=== PATIENT | male | born 2000 | race Caucasian/White ===

== ENCOUNTER 2018-08-28 16:51 | Emergency (ER) | payer SELFPAY ==
[~2018-08-28] VITALS: Ht 182.9 cm; Wt 127.0 kg
[2018-08-28 17:08] VITALS: BP 150/86
[2018-08-28] MEDS ORDERED: ONDANSETRON ODT 4 MG TAB.RAPDIS. PO ONE (17:15)
[2018-08-28] MEDS ORDERED: HYDROcodone/APAP 10/325 1 TAB TABLET PO ONE ×2 (17:15→17:30)
[2018-08-28] MEDS ORDERED: LIDOCAINE 1% PF 2 ML VIAL. INJ ONE (17:15)
[2018-08-28] MEDS ORDERED: CEPHALEXIN 250 MG CAPSULE. PO ONE (18:15)
[2018-08-28] MEDS ORDERED: HYDR-3164 PO (18:34)
--- NOTE | 2018-08-28 18:34 | PHYS DOC ---
Past Medical History Past Medical History: No Pertinent History (RAMSES RAMIREZ) Past Surgical History: Appendectomy (RAMSES RAMIREZ) Alcohol Use: None Drug Use: None (RAMSES RAMIREZ) Adult General Chief Complaint Chief Complaint: HAND PROBLEM HPI HPI Patient is a 18 year old M who was angry today and punched a table. He states that he was upset over some people being laid off at work and he was getting out his frustration. He has had a prior boxers fracture in this same hand. He is R hand dominant. (RAMSES RAMIREZ) Review of Systems Review of Systems Constitutional: Denies fever or chills Respiratory: Denies cough or shortness of breath Cardiovascular: Denies chest pain GI: Denies abdominal pain, nausea, vomiting, bloody stools or diarrhea : Denies dysuria or hematuria Musculoskeletal: Denies back pain. Reports R hand pain Integument: Denies rash or skin lesions Neurologic: Denies headache, focal weakness or sensory changes All other systems were reviewed and found to be within normal limits, except as documented in this note. (RAMSES RAMIREZ) Current Medications Current Medications Current Medications Medications (Trade) Dose Ordered Sig/Ashwini Start Time Stop Time Status Last Admin Dose Admin Acetaminophen/ Hydrocodone Bitart (Lortab 10/325) 1 tab 1X ONCE 08/28/18 17:30 08/28/18 17:59 DC 08/28/18 17:52 1 TAB Cephalexin HCl (Keflex) 500 mg 1X ONCE 08/28/18 18:15 08/28/18 18:16 Cancel Lidocaine HCl (Xylocaine-Mpf 1% 2ml Vial) 10 ml 1X ONCE 08/28/18 17:15 08/28/18 17:16 UNV Ondansetron HCl (Zofran Odt) 4 mg 1X ONCE 08/28/18 17:15 08/28/18 17:16 UNV (ONELIA CHARLTON DO) Allergies Allergies Allergies Coded Allergies Type Severity Reaction Last Updated Verified No Known Drug Allergies 08/28/18 No (ONELIA CHARLTON DO) Physical Exam Physical Exam Constitutional: Well developed, well nourished, no acute distress, non-toxic appearance. HENT: Normocephalic, atraumatic, bilateral external ears normal, oropharynx moist. Sinus tenderness, clear nasal discharge. Eyes: PERRLA, EOMI, conjunctiva normal, no discharge. Neck: Normal range of motion, no tenderness, supple, no stridor. Cardiovascular:Heart rate regular rhythm, no murmur Lungs & Thorax: Scattered wheezes, increased congestion in L upper lung and mid R lung regions. Abdomen: Bowel sounds normal, soft, no tenderness, no masses, no pulsatile masses. Skin: Warm, dry, no erythema, no rash. Back: No tenderness, no CVA tenderness. Extremities: No tenderness, no cyanosis, no clubbing, ROM intact, no edema. Neurologic: Alert and oriented X 3, normal motor function, normal sensory function, no focal deficits noted. Psychologic: Affect normal, judgement normal, mood normal. (RAMSES RAMIREZ) Current Patient Data Vital Signs Vital Signs Date Time Temp Pulse Resp B/P (MAP) Pulse Ox O2 Delivery O2 Flow Rate FiO2 08/28/18 17:08 98.8 81 16 150/86 (107) 99 Room Air 98.8 (ONELIA CHARLTON DO) EKG EKG [] (RAMSES RAMIREZ) Radiology/Procedures Radiology/Procedures Boxers fracture of 5th metatarsal. (RAMSES RAMIREZ) Radiology/Procedures PROCEDURE: HAND RIGHT 3V Examination: HAND RIGHT 3V, WRIST 3V RIGHT History: INJURY TO RIGHT HAND, pain Comparison/Correlation: None Findings: 3 images of the right hand and 3 images of the right wrist were obtained. Fifth metacarpal base fracture is present with intra-articular extension and displacement of the smaller fragment. Joint spaces are otherwise unremarkable. No degenerative change. Soft tissues are unremarkable. No radiopaque foreign bodies. Adequate bony mineralization. Impression: Fifth metacarpal basilar intra-articular displaced fracture. Electronically signed by: Carlo Denis MD (08/29/2018 8:02 AM) [facility] (ONELIA CHARLTON DO) Course & Med Decision Making Course & Med Decision Making Pertinent Labs and Imaging studies reviewed. (See chart for details) Radiology was having computer problem and images could not be loaded into the PACs system so I looked at images on machine and didn't see anything real obvious initially. Pt was placed in removal splint and I discussed with him that films would be read by radiologist and that I would call him with any concerns. Radiologist did confirm findings of aideners fracture on images so I called the number we had available and spoke with his sister (who was present during pt's visit and aware of situation) and explained that we do see a fracture and that he would benefit from coming back to get an OCL splint to keep this fracture stable. She said she would pass this message on to him and see if she can get him to come up to ER. Pt was encouraged to f/u with orthopedics and name was given. EMILY. (RAMSES RAMIREZ) Dragon Disclaimer Dragon Disclaimer This electronic medical record was generated, in whole or in part, using a voice recognition dictation system. (RAMSES RAMIREZ) Departure Departure Impression: Primary Impression: Boxers fracture Disposition: 01 HOME, SELF-CARE Condition: STABLE Referrals: NO PCP (PCP) ANTON ZEPEDA MD Patient Instructions: Hand Contusion, [id number] Additional Instructions: RICE F/u with orthopedics if symptoms persist. Scripts Hydrocodone/Apap 5-325 (NORCO 5-325 TABLET) 1 Each Tablet 1-2 TAB PO Q4-6HRS, #15 TAB Prov: RAMSES RAMIREZ 08/28/18 Attending Signature Attending Signature I have reviewed the PA/RESTAURANT SUPERVISOR's note and plan of care. I was available for consultation as needed during the patient's visit in the emergency department. I agree with the clinical impression, plan, and disposition. (ONELIA CHARLTON DO) Problem Qualifiers Primary Impression: Boxers fracture Encounter type: initial encounter Fracture type: closed Qualified Codes: S62.339A - Displaced fracture of neck of unspecified metacarpal bone, initial encounter for closed fracture RAMSES RAMIREZ Aug 28, 2018 18:34 ONELIA CHARLTON DO September 05, 2018 01:21
--- NOTE | 2018-08-29 08:05 | RAD ---
Examination: HAND RIGHT 3V, WRIST 3V RIGHT History: INJURY TO RIGHT HAND, pain Comparison/Correlation: None Findings: 3 images of the right hand and 3 images of the right wrist were obtained. Fifth metacarpal base fracture is present with intra-articular extension and displacement of the smaller fragment. Joint spaces are otherwise unremarkable. No degenerative change. Soft tissues are unremarkable. No radiopaque foreign bodies. Adequate bony mineralization. Impression: Fifth metacarpal basilar intra-articular displaced fracture. Electronically signed by: Carlo Denis MD (08/29/2018 8:02 AM) [facility]
== END 2018-08-28 18:46 | disposition home or self-care (01) ==
LOC: ER 16:51
DX: S62.316A Displaced fracture of base of fifth metacarpal bone, right hand, initial encounter for closed fracture (principal); R06.2 Wheezing; R09.89 Other specified symptoms and signs involving the circulatory and respiratory systems; Z90.89 Acquired absence of other organs; W22.8XXA Striking against or struck by other objects, initial encounter; Y93.89 Activity, other specified; Y92.89 Other specified places as the place of occurrence of the external cause; Y99.0 Civilian activity done for income or pay
CPT/HCPCS: 29125; 73110; 73130; 99284-25